=== PATIENT | male | born 1980 | race Caucasian/White ===

== ENCOUNTER 2025-04-05 00:23 | Emergency (ER) | payer BC, OTHER, SELFPAY ==
--- NOTE | 2025-04-05 02:30 | ER ---
Nurse's Notes [facility] Name: Raudel Solomon Age: 44 yrs Sex: Male : 1980 Arrival Date: 04/05/2025 Time: 00:23 Bed 8 Private MD: Diagnosis: Chest pain, unspecified Presentation: 04/05 00:25 Chief complaint: Patient states: C/O CP AND SOB ...PT HAS INTERMITTENT CP. PT IS IN br2 [employer]. Coronavirus screen: Client denies travel out of the [place] in the last 14 days. Ebola Screen: Patient denies exposure to infectious person. Initial Sepsis Screen: Does the patient meet any 2 criteria? No. Patient's initial sepsis screen is negative. Does the patient have a suspected source of infection? No. Patient's initial sepsis screen is negative. Risk Assessment: Do you want to hurt yourself or someone else? Patient reports no desire to harm self or others. Onset of symptoms is unknown. 00:25 Method Of Arrival: Law Enforcement: [place] [employer] br2 00:25 Acuity: ARIEL 3 br2 Triage Assessment: 00:27 General: Appears uncomfortable, Behavior is calm, cooperative. Pain: Complains of pain br2 in mid-sternal area Pain currently is 9 out of 10 on a pain scale. Historical: - Allergies: 00:27 PENICILLINS; br2 - Immunization history:: Adult Immunizations up to date. - Infectious Disease History:: Denies. - Social history:: Smoking status: Patient reports the use of cigarette tobacco products, smokes one pack cigarettes per day. Patient uses alcohol, on a daily basis. claims drinking about a 6 pack/day. street drugs, cocaine, Methamphetamine (Meth). - Family history:: not pertinent. - Hospitalizations: : No recent hospitalization is reported. Screenin:44 [facility] ED Fall Risk Assessment (Adult) History of falling in the last 3 months, bm8 including since admission No falls in past 3 months (0 pts) Confusion or Disorientation No (0 pts) Intoxicated or Sedated No (0 pts) Impaired Gait No (0 pts) Mobility Assist Device Used No (0 pt) Altered Elimination No (0 pt) Score/Fall Risk Level 0 - 2 = Low Risk Oriented to surroundings, Maintained a safe environment, Educated pt \T\ family on fall prevention, incl call for assistance when getting out of bed, Assessed \T\ reinforced patient's understanding of fall precautions, Hourly rounding (assess needs \T\ fall precautionary measures) done, Used ambulatory aids as needed (educated on \T\ assisted with), Used gait belt as appropriate. Abuse screen: Denies threats or abuse. Nutritional screening: No deficits noted. Tuberculosis screening: No symptoms or risk factors identified. Assessment: 00:44 Reassessment: Patient appears in no apparent distress at this time. Patient and/or bm8 family updated on plan of care and expected duration. Pain level reassessed. Patient is alert, oriented x 3, equal unlabored respirations, skin warm/dry/pink. General: Appears in no apparent distress. comfortable. Pain: Complains of pain in anterior aspect of right upper chest, mid-sternal area and right breast Pain does not radiate. Pain currently is 4 out of 10 on a pain scale. Pain began suddenly. Neuro: No deficits noted. Cardiovascular: Reports chest pain, Heart tones S1 S2 present Capillary refill < 3 seconds in bilateral fingers Patient's skin is warm and dry. Rhythm is sinus rhythm. Respiratory: Airway is patent Respiratory effort is even, unlabored, Respiratory pattern is regular, symmetrical, Breath sounds are clear bilaterally. GI: No signs and/or symptoms were reported involving the gastrointestinal system. : No signs and/or symptoms were reported regarding the genitourinary system. EENT: No signs and/or symptoms were reported regarding the EENT system. Derm: No signs and/or symptoms reported regarding the dermatologic system. Musculoskeletal: No signs and/or symptoms reported regarding the musculoskeletal system. 02:48 Reassessment: Patient appears in no apparent distress at this time. Patient and/or bm8 family updated on plan of care and expected duration. Pain level reassessed. Patient is alert, oriented x 3, equal unlabored respirations, skin warm/dry/pink. Patient denies pain at this time. Patient states feeling better. Patient states symptoms have improved. Vital Signs: 00:25 BP 134 / 85; Pulse 96; Resp 21; Temp 97.3; Pulse Ox 97% on R/A; Weight 81.65 kg; Height br2 5 ft. 7 in. ; Pain 9/10; 00:44 BP 126 / 86; Pulse 78; Resp 16; Temp 97.3; Pulse Ox 96% ; Pain 4/10; bm8 01:34 BP 158 / 96; Pulse 103; Resp 19; Pulse Ox 99% on R/A; kd3 02:48 BP 153 / 93; Pulse 94; Resp 16; Temp 97.3; Pulse Ox 99% ; Pain 0/10; bm8 00:25 Body Mass Index 28.19 (81.65 kg, 170.18 cm) br2 00:25 Pain Scale: Adult br2 00:44 Pain Scale: Adult bm8 02:48 Pain Scale: Adult bm8 [place]rum Coma Score: 00:44 Eye Response: spontaneous(4). Motor Response: obeys commands(6). Verbal Response: bm8 oriented(5). Total: 15. 02:48 Eye Response: spontaneous(4). Motor Response: obeys commands(6). Verbal Response: bm8 oriented(5). Total: 15. ED Course: 00:24 Patient arrived in ED. jj6 00:24 Sung Garcia MD is Attending Physician. rn 00:27 Triage completed. br2 00:27 Arm band placed on right wrist. br2 00:32 Сергей Garrett, RN is Primary Nurse. bm8 00:44 Patient has correct armband on for positive identification. Bed in low position. Call bm8 light in reach. Side rails up X2. Adult w/ patient. law enforcement at bedside. pt hand cuffed to bed on both sides. Client placed on continuous cardiac and pulse oximetry monitoring. NIBP monitoring applied. sock turner on. Pulse ox on. NIBP on. Door closed. Noise minimized. PO fluids given. Verbal reassurance given. Head of bed elevated. 00:44 No provider procedures requiring assistance completed. Initial lab(s) drawn, by lit wallace sent to lab. EKG done, by ED staff, reviewed by Sung Garcia MD. Inserted saline lock: 20 gauge in right forearm, using aseptic technique. Blood collected. Flushed with 10 mL NS. Patient maintains SpO2 saturation greater than 95% on room air. 01:01 XRAY Chest (1 view) In Process Unspecified. EDMS 02:48 Provided Education on: post er care. bm8 02:48 IV discontinued, intact, bleeding controlled, No redness/swelling at site. Pressure bm8 dressing applied. Administered Medications: No medications were administered Medication: 00:44 VIS not applicable for this client. bm8 Outcome: 02:30 Discharge ordered by . rn 02:48 Discharged to Law Enforcement bm8 02:48 Condition: stable 02:48 Discharge instructions given to patient, police, Instructed on discharge instructions, follow up and referral plans. no drinking with medication, no driving heavy equipment, medication usage, Demonstrated understanding of instructions, follow-up care, medications, 02:50 Patient left the ED. bm8 Signatures: Dispatcher [employer] EDMS Sung Garcia MD MD rn Jeffries, Jennifer jj6 Cassandra Eason RN RN kd3 Сергей Garrett, RN RN bm8 Krista Patrick RN RN br2
--- NOTE | 2025-04-05 02:30 | EDPHYS ---
Physician Documentation [facility] Name: Raudel Solomon Age: 44 yrs Sex: Male : 1980 Arrival Date: 04/05/2025 Time: 00:23 Bed 8 Private MD: ED Physician Sung Garcia HPI: 04/05 00:47 This 44 yrs old Male presents to ER via Law Enforcement with complaints of Chest Pain. rn 00:47 The patient or guardian reports chest pain that is located primarily in the substernal rn area. Onset: at an unknown time. Patient brought in by police, after being pulled over patient complained of chest pain. Patient reports intermittent chest pain over the last 8 months. Is active smoker. No known cardiac history. Reports history of "irregular heartbeat" but no clear diagnosis.. Historical: - Allergies: 00:27 PENICILLINS; br2 - Immunization history:: Adult Immunizations up to date. - Infectious Disease History:: Denies. - Social history:: Smoking status: Patient reports the use of cigarette tobacco products, smokes one pack cigarettes per day. Patient uses alcohol, on a daily basis. claims drinking about a 6 pack/day. street drugs, cocaine, Methamphetamine (Meth). - Family history:: not pertinent. - Hospitalizations: : No recent hospitalization is reported. ROS: 00:47 Constitutional: Negative for fever, chills, and weight loss, Cardiovascular: Negative rn for palpitations, and edema, Respiratory: Negative for shortness of breath, cough, wheezing, and pleuritic chest pain, Abdomen/GI: Negative for abdominal pain, nausea, vomiting, diarrhea, and constipation, Back: Negative for injury and pain, MS/Extremity: Negative for injury and deformity, Skin: Negative for injury, rash, and discoloration, Neuro: Negative for headache, weakness, numbness, tingling, and seizure, Exam: 00:47 Constitutional: This is a well developed, well nourished patient who is awake, alert, rn and in no acute distress. Ambulatory into the emergency room Cardiovascular: Regular rate and rhythm. No pulse deficits. Respiratory: Speaking full sentences, unlabored. No increased work of breathing, no retractions or nasal flaring. Abdomen/GI: Soft, non-tender MS/ Extremity: Pulses equal, no cyanosis. Neuro: Awake and alert, GCS 15 00:54 ECG was reviewed by the Attending Physician. rn Vital Signs: 00:25 BP 134 / 85; Pulse 96; Resp 21; Temp 97.3; Pulse Ox 97% on R/A; Weight 81.65 kg; Height br2 5 ft. 7 in. ; Pain 9/10; 00:44 BP 126 / 86; Pulse 78; Resp 16; Temp 97.3; Pulse Ox 96% ; Pain 4/10; bm8 01:34 BP 158 / 96; Pulse 103; Resp 19; Pulse Ox 99% on R/A; kd3 02:48 BP 153 / 93; Pulse 94; Resp 16; Temp 97.3; Pulse Ox 99% ; Pain 0/10; bm8 00:25 Body Mass Index 28.19 (81.65 kg, 170.18 cm) br2 00:25 Pain Scale: Adult br2 00:44 Pain Scale: Adult bm8 02:48 Pain Scale: Adult bm8 Nitesh Coma Score: 00:44 Eye Response: spontaneous(4). Motor Response: obeys commands(6). Verbal Response: bm8 oriented(5). Total: 15. 02:48 Eye Response: spontaneous(4). Motor Response: obeys commands(6). Verbal Response: bm8 oriented(5). Total: 15. MDM: 00:24 Medical Screening Exam initiated rn 02:29 Differential diagnosis: acute myocardial infarction, acute pericarditis, anxiety, rn coronary artery disease chest wall pain, costochondritis, esophagitis, gastroesophageal reflux disease (GERD), pleurisy, pneumothorax. HEART Score: History: Slightly Suspicious (0), ECG: Normal (0), Age: < or = 45 years (0), Risk Factors: No Risk Factors Known (0), Troponin: < or = 1 x Normal Limit (0), Total Score = 0. Data reviewed: vital signs, nurses notes, lab test result(s), EKG, and as a result, I will discharge patient. Counseling: I had a detailed discussion with the patient and/or guardian regarding the historical points, exam findings, and any diagnostic results supporting the discharge/admit diagnosis, lab results, radiology results, the need for outpatient follow up, to return to the emergency department if symptoms worsen or persist or if there are any questions or concerns that arise at home. Special discussion: Based on the patient's history, exam, and Dx evaluation, there is no indication for emergent intervention or inpatient Tx. It is understood by the patient/guardian that if the Sx's persist or worsen they need to return immediately for re-evaluation. I discussed with the patient/guardian in detail that at this point there is no indication for admission to the hospital. It is understood, however, that if the symptoms persist or worsen the patient needs to return immediately for re-evaluation. 02:30 Counseling: I had a detailed discussion with the patient and/or guardian regarding the rn presence of at least one elevated blood pressure reading (>120/80) during this emergency department visit. Special discussion: I have referred the patient to see his PCP for further evaluation of high blood pressure. 04/05 00: Order name: Troponin High Sensitivity; Complete Time: : rn 04/05 00: Order name: XRAY Chest (1 view) rn 04/05 00: Order name: EKG; Complete Time: : rn 04/05 00: Order name: EKG - Nurse/Tech; Complete Time: rn 04/05 Order name: Cardiac monitoring; Complete Time: rn 04/05 00: Order name: IV Start; Complete Time: : rn EC:54 Rate is 84 beats/min. Rhythm is regular. QRS [place] is Normal. IA interval is normal. QRS rn interval is normal. QT interval is normal. No Q waves. T waves are Normal. No ST changes noted. Clinical impression: Normal ECG. Interpreted by me. Reviewed by me. Administered Medications: No medications were administered Disposition Summary: 04/05/25 02:30 Discharge Ordered Notes: Location: Home rn Problem: new rn Symptoms: have improved rn Condition: Stable rn Diagnosis - Chest pain, unspecified rn Followup: rn - With: Private Physician - When: As needed - Reason: Recheck today's complaints, Re-evaluation by your physician Discharge Instructions: - Discharge Summary Sheet rn - Nonspecific Chest Pain, Adult rn - Hypertension, Adult rn Forms: - Medication Reconciliation Form rn - Antibiotic clinical appeals rn - Prescription Opioid Use rn - Patient Portal Instructions rn - Leadership Thank You Letter rn Signatures: Dispatcher [employer] Sung Sanchez MD MD rn Riddle, Belinda, RN RN br2 Corrections: (The following items were deleted from the chart) 00:25 00:25 Chest Single View+[email or web address] ordered. EDMS EDMS
[2025-04-05 02:59] VITALS: TEMP 97.3
[2025-04-05 03:02] VITALS: O2SAT 99
[2025-04-05 03:04] VITALS: BP 153/93
--- NOTE | 2025-04-05 05:12 | RAD REPORT ---
EXAM DESCRIPTION: Chest Single View CLINICAL HISTORY: CHEST PAIN COMPARISON: None TECHNIQUE: Single AP view of the chest. FINDINGS: Lung volumes adequate. Cardiac silhouette is normal in size. No pneumothorax. No large pleural effusion. No focal consolidation. No acute bony finding. IMPRESSION: No evidence of acute cardiopulmonary disease. Electronically signed by: Vitor Friedman MD 04/05/2025 02:21 AM CDT RP TYG Due to temporary technical issues with the PACS/[employer] reporting system, reports are being jewell d by the in-house radiologist without review as a courtesy to ensure prompt reporting the interpreting radiologist is fully responsible for the content of the report. Transcribed Date/Time: 04/05/2025 5:12 AM
== END 2025-04-05 02:50 | disposition home or self-care (01) ==
LOC: ER 00:23
DX: R07.9 Chest pain, unspecified (principal)
CPT/HCPCS: 36415; 71045; 84484; 93005; 99284